=== PATIENT | female | born 1990 | race Caucasian/White ===

== ENCOUNTER → 2020-04-02 | Outpatient (CLI) | payer OTHER ==
--- NOTE | 2020-04-02 10:52 | RAD ---
Abdominal ultrasound dated 04/02/2020. No comparison available. CLINICAL INDICATION: Abdominal pain. FINDINGS: Liver is homogeneous in echogenicity. No focal hepatic mass. Intrahepatic and extra hepatic biliary t ree normal in caliber. The common bile duct measures 3 mm. Gallbladder normal in size and echogenicity. No gallbladder wall thickening or pericholecystic fluid. No gallstones are seen. Left kidney measures 10.9 cm in length. Right kidney measures 11.2 cm in length. No hydronephrosis. Spleen is homogeneous in echogenicity and measures about 10.4 cm in length. Limited visualized portions of pancreas aorta and IVC unremarkable. No significant ascites. IMPRESSION: Negative abdominal ultrasound Electronically signed by: Rod Kowalski MD (04/02/2020 10:49 AM) [id number]
== END ==
LOC: US 10:15
PROVIDERS: ATTEND Family Medicine
DX: R10.9 Unspecified abdominal pain (principal)
CPT/HCPCS: 76700